=== PATIENT | female | born 1955 | race Caucasian/White ===

== ENCOUNTER 2017-07-22 15:44 | Emergency (ER) | payer OTHER ==
[~2017-07-22] VITALS: Ht 157.5 cm; Wt 70.3 kg
[2017-07-22] MEDS ORDERED: ONDANSETRON PF 4 MG/2 ML VIAL. IV ONE (16:00)
[2017-07-22 16:09] LABS: BILIRUBIN,URINE MODERATE (NEG); GLUCOSE,URINE NEGATIVE (NEG); NITRITE,URINE NEGATIVE (NEG); PROTEIN,URINE 100 mg/dL (NEG-TRACE); UROBILINOGEN,URINE 0.2 mg/dL (0.2 mg/dL)
[2017-07-22 16:14] LABS: BASO # 0.1 x10^3/uL (0.0-0.2); BASO % 0 % (0-3); EOS % 1 % (0-3); HEMATOCRIT 44.5 % (36.0-47.0); HEMOGLOBIN 14.7 g/dL (12.0-15.5); LYMPH # 2.4 x10^3/uL (1.0-4.8); LYMPH % 15 % (24-48); MEAN CORPUSCULAR HEMOGLOBIN 26 pg (25-35); MEAN CORPUSCULAR HGB CONC 33 g/dL (31-37); MEAN CORPUSCULAR VOLUME 80 fL (79-100); MONO % 5 % (0-9); NEUT % 79 % (31-73); PLATELET COUNT 431 x10^3/uL (140-400); RED BLOOD COUNT 5.59 x10^6/uL (3.50-5.40); RED CELL DISTRIBUTION WIDTH 13.4 % (11.5-14.5); WHITE BLOOD COUNT 16.4 x10^3/uL (4.0-11.0)
--- NOTE | 2017-07-22 16:14 | PHYS DOC ---
Past Medical History Past Medical History: High Cholesterol Additional Past Medical Histor: PSORIASIS Past Surgical History: No Surgical History Alcohol Use: None Drug Use: None Adult General Chief Complaint Chief Complaint: ABDOMINAL PAIN HPI HPI Patient is a 61 year old [id number] female presents with acute onset left flank pain rating to left groin. Symptoms began approximately 2 hours prior to ED arrival. Pain is described as sharp is rated moderate to severe. Patient cannot think of any aggravating or relieving factors. Associated symptoms include nausea vomiting and sweats and hematuria. Denies urinary frequency urgency. Patient is not on anticoagulation therapy. No fevers chills or dysuria. No history of kidney stones. No prior abdominal surgeries. No other acute symptoms or complaints. Review of Systems Review of Systems Review symptoms as per history of present illness. All other review symptoms are negative. Current Medications Current Medications Current Medications Medications (Trade) Dose Ordered Sig/Rishabh Start Time Stop Time Status Last Admin Dose Admin Fentanyl Citrate (Fentanyl 2ml Vial) 75 mcg 1X ONCE 07/22/17 16:15 07/22/17 16:16 DC 07/22/17 16:17 75 MCG Ondansetron HCl (Zofran) 8 mg 1X ONCE 07/22/17 16:00 07/22/17 16:01 DC 07/22/17 16:06 8 MG Sodium Chloride 1,000 ml @ 1,000 mls/hr 1X ONCE 07/22/17 16:15 07/22/17 17:14 DC 07/22/17 16:16 1,000 MLS/HR Allergies Allergies Allergies Coded Allergies Type Severity Reaction Last Updated Verified No Known Drug Allergies 07/22/17 No Physical Exam Physical Exam Constitutional: Well developed, well nourished, moderate distress secondary to pain. [] HENT: Normocephalic, atraumatic, bilateral external ears normal, oropharynx moist, no oral exudates, nose normal. [] Eyes: PERRLA, EOMI, conjunctiva normal, no discharge. [] Neck: Normal range of motion, no tenderness, supple, no stridor. [] Cardiovascular:Heart rate regular rhythm, no murmur [] Lungs & Thorax: Bilateral breath sounds clear to auscultation [] Abdomen: Bowel sounds normal, soft, no tenderness. [] Skin: Warm, dry, no erythema, no rash. [] Back: No tenderness. [] Extremities: No tenderness, no clubbing, ROM intact, no edema. [] Neurologic: Alert and oriented X 3, normal motor function, normal sensory function, no focal deficits noted. [] Psychologic: Affect normal, judgement normal, mood normal. [] Current Patient Data Vital Signs Vital Signs Date Time Temp Pulse Resp B/P (MAP) Pulse Ox O2 Delivery O2 Flow Rate FiO2 07/22/17 19:21 68 20 121/74 (90) 98 Room Air 07/22/17 15:55 97.6 97.6 Lab Values Laboratory Tests Test 07/22/17 15:50 07/22/17 16:05 Urine Collection Type Unknown Urine Color Red Urine Clarity Turbid Urine pH 5.0 Urine Specific [place] >=1.030 Urine Protein 100 mg/dL (NEG-TRACE) Urine Glucose (UA) Negative mg/dL (NEG) Urine Ketones (Stick) Trace mg/dL (NEG) Urine Blood Large (NEG) Urine Nitrite Negative (NEG) Urine Bilirubin Moderate (NEG) Urine Urobilinogen Dipstick 0.2 mg/dL (0.2 mg/dL) Urine Leukocyte Esterase Small (NEG) Urine RBC Tntc /HPF (0-2) Urine WBC 5-10 /HPF (0-4) Urine Squamous Epithelial Cells Few /LPF Urine Bacteria Few /HPF (0-FEW) Urine Mucus Mod /LPF White Blood Count 16.4 x10^3/uL (4.0-11.0) H Red Blood Count 5.59 x10^6/uL (3.50-5.40) H Hemoglobin 14.7 g/dL (12.0-15.5) Hematocrit 44.5 % (36.0-47.0) Mean Corpuscular Volume 80 fL (79-100) Mean Corpuscular Hemoglobin 26 pg (25-35) Mean Corpuscular Hemoglobin Concent 33 g/dL (31-37) Red Cell Distribution Width 13.4 % (11.5-14.5) Platelet Count 431 x10^3/uL (140-400) H Neutrophils (%) (Auto) 79 % (31-73) H Lymphocytes (%) (Auto) 15 % (24-48) L Monocytes (%) (Auto) 5 % (0-9) Eosinophils (%) (Auto) 1 % (0-3) Basophils (%) (Auto) 0 % (0-3) Neutrophils # (Auto) 13.1 x10^3uL (1.8-7.7) H Lymphocytes # (Auto) 2.4 x10^3/uL (1.0-4.8) Monocytes # (Auto) 0.8 x10^3/uL (0.0-1.1) Eosinophils # (Auto) 0.2 x10^3/uL (0.0-0.7) Basophils # (Auto) 0.1 x10^3/uL (0.0-0.2) Sodium Level 143 mmol/L (136-145) Potassium Level 3.5 mmol/L (3.5-5.1) Chloride Level 104 mmol/L (98-107) Carbon Dioxide Level 26 mmol/L (21-32) Anion Gap 13 (6-14) Blood Urea Nitrogen 19 mg/dL (7-20) Creatinine 0.8 mg/dL (0.6-1.0) Estimated GFR (Cockcroft-Gault) 72.7 BUN/Creatinine Ratio 24 (6-20) H Glucose Level 115 mg/dL (70-99) H Calcium Level 9.6 mg/dL (8.5-10.1) Total Bilirubin 0.5 mg/dL (0.2-1.0) Aspartate Amino Transferase (AST) 16 U/L (15-37) Alanine Aminotransferase (ALT) 22 U/L (14-59) Alkaline Phosphatase 139 U/L (46-116) H Troponin I Quantitative < 0.017 ng/mL (0.000-0.055) Total Protein 7.3 g/dL (6.4-8.2) Albumin 4.5 g/dL (3.4-5.0) Albumin/Globulin Ratio 1.6 (1.0-1.7) Lipase 218 U/L (73-393) Laboratory Tests 07/22/17 16:05 Laboratory Tests 07/22/17 16:05 EKG EKG [] Radiology/Procedures Radiology/Procedures [CT abdomen/pelvis: 2mm Proximal left ureteral stone with mild hydro-per radiology report.] Course & Med Decision Making Course & Med Decision Making Pertinent Labs and Imaging studies reviewed. (See chart for details) [Patient resting comfortably and comfort symptom-free are to departure. Urine culture sent. Will treat supportively with watchful waiting and PCP follow-up.] Return precautions reviewed. Patient verbalizes understanding agreement discharge instructions prior to departure. Dragon Disclaimer Dragon Disclaimer This electronic medical record was generated, in whole or in part, using a voice recognition dictation system. Departure Departure Impression: Primary Impression: Kidney stone Disposition: 01 HOME, SELF-CARE Condition: GOOD Patient Instructions: Kidney Stones, Bkei-ig-Haxy JULIO LAWSON DO Jul 22, 2017 16:14
[2017-07-22] MEDS ORDERED: fentaNYL PF VIAL 100 MCG/2 ML VIAL IV ONE (16:15)
[2017-07-22] MEDS ORDERED: IV NORMAL SALINE 1000ML BAG 1,000 ML IV ONE (16:15)
[2017-07-22 16:23] LABS: CALCIUM 9.6 mg/dL (8.5-10.1); CREATININE 0.8 mg/dL (0.6-1.0); GFR 72.7; POTASSIUM 3.5 mmol/L (3.5-5.1)
[2017-07-22 16:24] LABS: RBC,URINE TNTC /HPF (0-2)
[2017-07-22 16:26] LABS: BACTERIA,URINE FEW /HPF (0-FEW); SQUAMOUS EPITHELIAL CELL,UR FEW /LPF
[2017-07-22 16:28] LABS: ALBUMIN 4.5 g/dL (3.4-5.0); ALBUMIN/GLOBULIN RATIO 1.6 (1.0-1.7); TOTAL BILIRUBIN 0.5 mg/dL (0.2-1.0); TOTAL PROTEIN 7.3 g/dL (6.4-8.2)
--- NOTE | 2017-07-22 17:45 | RAD ---
CT abdomen and pelvis without contrast TECHNIQUE: Helical noncontrast CT imaging the abdomen and pelvis was acquired. HISTORY: Severe left flank pain. Abdomen findings: Grade 1 anterolisthesis of L4 on L5 and disc bulges with facet osteophytes with spinal canal and neural foraminal stenoses L4-5 and L5-S1. Lung bases unremarkable. Mild left renal hydronephrosis associated with a 2 mm proximal ureteral calculus and mild perinephric and periureteral edema. Right kidney, adrenals, liver, gallbladder, pancreas and spleen are unremarkable. 2 cm descending duodenal lipoma. No bowel obstruction. Appendix is negative. No abdominal fluid. Pelvis findings: The bladder calculi. Uterus, ovaries, rectum and bones are unremarkable. No pelvic fluid. IMPRESSION: 1. Mild left renal hydronephrosis due to a 2 mm proximal ureteral obstructing calculus. 2. The appendix is negative. Exposure: One or more of the following individualized dose reduction techniques were utilized for this examination: 1. Automated exposure control 2. Adjustment of the mA and/or kV according to patient size 3. Use of iterative reconstruction technique Electronically signed by: Tucker Steele MD (07/22/2017 5:42 PM) [facility]
[2017-07-22 19:21] VITALS: BP 121/74
--- NOTE | 2017-07-23 08:23 | EKG ---
[facility] [address] [place] [address] Test Date: 2017-07-22 Test Time: 16:20:25 Pat Name: SHAKEEL NICK Department: Room: Gender: F [employer]ware [employer] Architect: : [id number] Requested By: JULIO LAWSON Order Number: [id number] Reading MD: Measurements Intervals [place] Rate: 74 P: -171 ME: 144 QRS: 139 QRSD: 76 T: 151 QT: 406 QTc: 451 Interpretive Statements SINUS RHYTHM ABNORMAL RIGHT AXIS DEVIATION INCOMPLETE RIGHT BUNDLE BRANCH BLOCK QRS(T) CONTOUR ABNORMALITY CONSIDER ANTEROLATERAL MYOCARDIAL DAMAGE RI6.01 Unconfirmed report No previous ECG available for comparison
== END 2017-07-22 19:53 | disposition home or self-care (01) ==
LOC: ER 15:44
DX: N20.2 Calculus of kidney with calculus of ureter (principal); E78.00 Pure hypercholesterolemia, unspecified; L40.9 Psoriasis, unspecified
CPT/HCPCS: 36415; 74176; 80053; 81001; 83690; 84484; 85025; 87086; 93005; 96361; 96374; 96375; 99285; J2405; J3010; J7030

== ENCOUNTER 2017-08-06 07:55 | Emergency (ER) | payer OTHER ==
[~2017-08-06] VITALS: Ht 157.5 cm; Wt 70.3 kg
[2017-08-06] MEDS ORDERED: KETOROLAC 30 MG/ML INJ. IV ONE (08:15)
[2017-08-06] MEDS ORDERED: ONDANSETRON PF 4 MG/2 ML VIAL. IV ONE (08:15)
[2017-08-06] MEDS ORDERED: IV NORMAL SALINE 1000ML BAG 1,000 ML IV ONE (08:15)
--- NOTE | 2017-08-06 08:20 | PHYS DOC ---
Past Medical History Past Medical History: High Cholesterol, Kidney Stone Additional Past Medical Histor: PSORIASIS Past Surgical History: Other Additional Past Surgical Histo: Carpal tunnel R hand Alcohol Use: None Drug Use: None Adult General Chief Complaint Chief Complaint: FLANK PAIN HPI HPI Patient is a 61 year old female who presents with left flank pain. Patient states she was seen here 2 weeks ago, diagnosed with kidney stone. She felt slightly better but is not sure that she ever passed the stone. Today she has worsening left flank and groin pain associated with one episode of vomiting. She feels weak all over. She denies fevers or chills, diarrhea or constipation, dysuria or hematuria, vaginal bleeding or discharge. She denies previous history of kidney stone. She did not follow-up with urology after her previous visit. She denies history of abdominal surgeries. She has a PCP at [facility]. Review of Systems Review of Systems Constitutional: Denies fever or chills HENT: Denies nasal congestion or sore throat Respiratory: Denies cough or shortness of breath Cardiovascular: Denies chest pain or edema GI: Reports abdominal pain, nausea, vomiting, denies bloody stools or diarrhea : Denies dysuria or hematuria Musculoskeletal: Reports flank pain, denies joint pain Integument: Denies rash or skin lesions Neurologic: Denies headache, focal weakness or sensory changes Current Medications Current Medications Current Medications Medications (Trade) Dose Ordered Sig/Rishabh Start Time Stop Time Status Last Admin Dose Admin Fentanyl Citrate (Fentanyl 2ml Vial) 50 mcg PRN Q15MIN PRN 08/06/17 10:15 08/06/17 13:08 DC 08/06/17 10:19 50 MCG Ketorolac Tromethamine (Toradol) 30 mg 1X ONCE 08/06/17 08:15 08/06/17 08:16 DC 08/06/17 08:24 30 MG Ondansetron HCl (Zofran Odt) 4 mg 1X ONCE 08/06/17 13:00 08/06/17 13:01 DC 08/06/17 13:00 4 MG Ondansetron HCl (Zofran) 4 mg 1X ONCE 08/06/17 12:45 08/06/17 12:46 DC Potassium Chloride (KCl Oral Soln) 40 meq 1X ONCE 08/06/17 11:30 08/06/17 11:31 DC 08/06/17 11:38 40 MEQ Sodium Chloride 1,000 ml @ 1,000 mls/hr 1X ONCE 08/06/17 08:15 08/06/17 09:14 DC 08/06/17 08:25 1,000 MLS/HR Allergies Allergies Allergies Coded Allergies Type Severity Reaction Last Updated Verified No Known Drug Allergies 07/22/17 No Physical Exam Physical Exam Constitutional: Well developed, well nourished, appears uncomfortable but nontoxic HENT: Normocephalic, atraumatic, bilateral external ears normal, oropharynx moist, nose normal. Eyes: conjunctiva normal, no discharge. Neck: supple, no stridor. Cardiovascular: RRR, no murmurs, no edema. Lungs & Thorax: LCTAB, no wheezing, no respiratory distress. Abdomen: soft, no focal abdominal tenderness with palpation, no rebound or guarding, no masses or pulsatile masses, nondistended. Skin: Warm, dry, no erythema, no rash. Back: Left CVA tenderness is present Extremities: No tenderness, no edema. Neurologic: Alert and oriented X 3, no focal deficits noted. Psychologic: Affect normal, judgement normal, mood normal. Current Patient Data Vital Signs Vital Signs Date Time Temp Pulse Resp B/P (MAP) Pulse Ox O2 Delivery O2 Flow Rate FiO2 08/06/17 12:34 58 137/75 (95) 99 Room Air 08/06/17 11:04 18 08/06/17 08:02 97.5 97.5 Lab Values Laboratory Tests Test 08/06/17 06:00 08/06/17 08:20 Urine Collection Type Unknown Urine Color Kaylee Urine Clarity Turbid Urine pH 5.0 Urine Specific [place] >=1.030 Urine Protein 100 mg/dL (NEG-TRACE) Urine Glucose (UA) Negative mg/dL (NEG) Urine Ketones (Stick) Negative mg/dL (NEG) Urine Blood Large (NEG) Urine Nitrite Negative (NEG) Urine Bilirubin Small (NEG) Urine Urobilinogen Dipstick 0.2 mg/dL (0.2 mg/dL) Urine Leukocyte Esterase Negative (NEG) Urine RBC 11-20 /HPF (0-2) Urine WBC Rare /HPF (0-4) Urine Squamous Epithelial Cells Few /LPF Urine Bacteria Few /HPF (0-FEW) Urine Mucus Slight /LPF White Blood Count 11.4 x10^3/uL (4.0-11.0) H Red Blood Count 5.44 x10^6/uL (3.50-5.40) H Hemoglobin 14.6 g/dL (12.0-15.5) Hematocrit 43.8 % (36.0-47.0) Mean Corpuscular Volume 81 fL (79-100) Mean Corpuscular Hemoglobin 27 pg (25-35) Mean Corpuscular Hemoglobin Concent 33 g/dL (31-37) Red Cell Distribution Width 13.3 % (11.5-14.5) Platelet Count 359 x10^3/uL (140-400) Neutrophils (%) (Auto) 84 % (31-73) H Lymphocytes (%) (Auto) 12 % (24-48) L Monocytes (%) (Auto) 3 % (0-9) Eosinophils (%) (Auto) 1 % (0-3) Basophils (%) (Auto) 0 % (0-3) Neutrophils # (Auto) 9.6 x10^3uL (1.8-7.7) H Lymphocytes # (Auto) 1.4 x10^3/uL (1.0-4.8) Monocytes # (Auto) 0.4 x10^3/uL (0.0-1.1) Eosinophils # (Auto) 0.1 x10^3/uL (0.0-0.7) Basophils # (Auto) 0.0 x10^3/uL (0.0-0.2) Sodium Level 142 mmol/L (136-145) Potassium Level 3.2 mmol/L (3.5-5.1) L Chloride Level 104 mmol/L (98-107) Carbon Dioxide Level 24 mmol/L (21-32) Anion Gap 14 (6-14) Blood Urea Nitrogen 26 mg/dL (7-20) H Creatinine 1.2 mg/dL (0.6-1.0) H Estimated GFR (Cockcroft-Gault) 45.5 BUN/Creatinine Ratio 22 (6-20) H Glucose Level 157 mg/dL (70-99) H Calcium Level 9.3 mg/dL (8.5-10.1) Total Bilirubin 0.4 mg/dL (0.2-1.0) Aspartate Amino Transferase (AST) 15 U/L (15-37) Alanine Aminotransferase (ALT) 31 U/L (14-59) Alkaline Phosphatase 134 U/L (46-116) H Total Protein 7.6 g/dL (6.4-8.2) Albumin 4.2 g/dL (3.4-5.0) Albumin/Globulin Ratio 1.2 (1.0-1.7) Lipase 253 U/L (73-393) Laboratory Tests 08/06/17 08:20 Laboratory Tests 08/06/17 08:20 EKG EKG [] Radiology/Procedures Radiology/Procedures PROCEDURE: CT ABDOMEN PELVIS WO CONTRAST Indication worsening left flank pain. Axial images of the abdomen and pelvis were obtained. The examination was tailored for the detection of renal and/or ureteral calculi. No IV or gastrointestinal contrast was administered. Note is made of a similar examination 07/22/2017. The lung bases are clear. The liver and spleen appear normal gallbladder is grossly normal. No pancreatic pathology is seen. There were no adrenal masses. No renal calculi are seen. There is persistent mild left hydronephrosis and hydroureter secondary to a 2 mm calculus in the distal left ureter. The calculus has migrated distally in the ureter relative to the previous exam and now is positioned approximately 2 cm above the UVJ. No additional finding is seen in the abdomen or pelvis. IMPRESSION: 2 mm calculus in the distal left ureter (the calculus has migrated relative to the previous exam) with associated mild obstructive uropathy PQRS Compliance Statement: One or more of the following individualized dose reduction techniques were utilized for this examination: 1. Automated exposure control 2. Adjustment of the mA and/or kV according to patient size 3. Use of iterative reconstruction technique DICTATED and SIGNED BY: MATHEW SEO MD DATE: 08/06/17 1013 [] Course & Med Decision Making Course & Med Decision Making Pertinent Labs and Imaging studies reviewed. (See chart for details) The patient presents with left flank pain. Gave IV fluids, Zofran, pain medication. She continued to have pain but did not vomit here. Labs show mild elevation of her creatinine from previous baseline. No evidence of urinary tract infection. CT shows migration of the stones are persistent distal ureteral stone measuring 2 mm. Patient did not feel well enough to go home. Discussed disposition. Unfortunately no urology coverage here at this time. She would like to go to [facility] to be seen by her 's urologist. Discussed with Dr. Pino, hospitalist at [facility], who agrees to accept for admission. Patient would like to travel by private vehicle. She is in stable condition at this time and her IV was removed for transfer. She is being transferred in stable condition. She understands she is to go directly to the accepting hospital to the registration department. [] Dragon Disclaimer Dragon Disclaimer This electronic medical record was generated, in whole or in part, using a voice recognition dictation system. Departure Departure Impression: Primary Impression: Ureteral colic Additional Impressions: Hydronephrosis Nausea & vomiting Disposition: 05 TRANSFER OTHER Condition: STABLE Referrals: ANJELICA WAGGONER DO (PCP) Problem Qualifiers MELCHOR DAMON MD Aug 06, 2017 08:20
[2017-08-06 08:36] LABS: BASO % 0 % (0-3); EOS % 1 % (0-3); HEMATOCRIT 43.8 % (36.0-47.0); HEMOGLOBIN 14.6 g/dL (12.0-15.5); LYMPH # 1.4 x10^3/uL (1.0-4.8); LYMPH % 12 % (24-48); MEAN CORPUSCULAR HEMOGLOBIN 27 pg (25-35); MEAN CORPUSCULAR HGB CONC 33 g/dL (31-37); MEAN CORPUSCULAR VOLUME 81 fL (79-100); MONO % 3 % (0-9); NEUT % 84 % (31-73); PLATELET COUNT 359 x10^3/uL (140-400); RED BLOOD COUNT 5.44 x10^6/uL (3.50-5.40); RED CELL DISTRIBUTION WIDTH 13.3 % (11.5-14.5); WHITE BLOOD COUNT 11.4 x10^3/uL (4.0-11.0)
[2017-08-06 08:41] LABS: CALCIUM 9.3 mg/dL (8.5-10.1); CREATININE 1.2 mg/dL (0.6-1.0); GFR 45.5; POTASSIUM 3.2 mmol/L (3.5-5.1)
[2017-08-06 08:46] LABS: ALBUMIN 4.2 g/dL (3.4-5.0); ALBUMIN/GLOBULIN RATIO 1.2 (1.0-1.7); TOTAL BILIRUBIN 0.4 mg/dL (0.2-1.0); TOTAL PROTEIN 7.6 g/dL (6.4-8.2)
[2017-08-06 08:59] LABS: BILIRUBIN,URINE SMALL (NEG); GLUCOSE,URINE NEGATIVE (NEG); NITRITE,URINE NEGATIVE (NEG); PROTEIN,URINE 100 mg/dL (NEG-TRACE); UROBILINOGEN,URINE 0.2 mg/dL (0.2 mg/dL)
[2017-08-06 09:11] LABS: BACTERIA,URINE FEW /HPF (0-FEW); SQUAMOUS EPITHELIAL CELL,UR FEW /LPF; WBC,URINE RARE /HPF (0-4)
[2017-08-06] MEDS ORDERED: fentaNYL PF VIAL 100 MCG/2 ML VIAL IV PRN (10:15)
--- NOTE | 2017-08-06 10:21 | RAD ---
Indication worsening left flank pain. Axial images of the abdomen and pelvis were obtained. The examination was tailored for the detection of renal and/or ureteral calculi. No IV or gastrointestinal contrast was administered. Note is made of a similar examination 07/22/2017. The lung bases are clear. The liver and spleen appear normal gallbladder is grossly normal. No pancreatic pathology is seen. There were no adrenal masses. No renal calculi are seen. There is persistent mild left hydronephrosis and hydroureter secondary to a 2 mm calculus in the distal left ureter. The calculus has migrated distally in the ureter relative to the previous exam and now is positioned approximately 2 cm above the UVJ. No additional finding is seen in the abdomen or pelvis. IMPRESSION: 2 mm calculus in the distal left ureter (the calculus has migrated relative to the previous exam) with associated mild obstructive uropathy PQRS Compliance Statement: One or more of the following individualized dose reduction techniques were utilized for this examination: 1. Automated exposure control 2. Adjustment of the mA and/or kV according to patient size 3. Use of iterative reconstruction technique
[2017-08-06] MEDS ORDERED: POTASSIUM CHLORIDE 20 MEQ/15 ML ORAL LIQUID. PO ONE (11:30)
[2017-08-06] MEDS ORDERED: POTASSIUM CHLORIDE 10MEQ 100 ML IV SCH (11:30)
[2017-08-06 12:34] VITALS: BP 137/75
[2017-08-06] MEDS: ONDANSETRON PF 4 MG/2 ML VIAL. IV ONE ×2 (12:45→12:50)
[2017-08-06] MEDS ORDERED: ONDANSETRON ODT 4 MG TAB.RAPDIS. PO ONE ×2 (12:45→13:00)
== END 2017-08-06 13:00 | disposition short-term general hospital (02) ==
LOC: ER 07:55
DX: N23 Unspecified renal colic (principal); N13.2 Hydronephrosis with renal and ureteral calculous obstruction; E78.00 Pure hypercholesterolemia, unspecified; Z87.442 Personal history of urinary calculi
CPT/HCPCS: 36415; 74176; 80053; 81001; 83690; 85025; 96361; 96374; 96375; 99285; J1885; J2405; J3010; J7030; Q0162